=== PATIENT | female | born 1995 | race Caucasian/White ===

== ENCOUNTER 2020-05-31 10:21 | Emergency (ER) | payer OTHER, SELFPAY ==
[2020-05-31 10:48] VITALS: BP 118/81; PULSE 77; RESP 15; TEMP 36.6; O2SAT 98; BMI 22.1
--- NOTE | 2020-05-31 10:53 | US_ITS ---
EXAMINATION: ULTRASOUND APPENDIX CLINICAL INFORMATION: Right lower quadrant pain COMPARISON: None TECHNIQUE: Sonographic evaluation of the right lower quadrant with graded compression. FINDINGS: The appendix is identified measuring up to 0.6 cm. No wall thickening or adjacent inflammation. No free fluid. There is an appendicolith noted at the base of the appendix. US/US appendix IMPRESSION: Appendicolith at the base of the appendix with otherwise normal appearance of the appendix.
--- NOTE | 2020-05-31 10:53 | US_ITS ---
EXAMINATION: ULTRASOUND OF THE PELVIS CLINICAL INFORMATION: Pelvic/right lower quadrant pain.. COMPARISON: None. TECHNIQUE: Transabdominal and transvaginal pelvic ultrasound. Doppler evaluation with spectral analysis was performed. A transvaginal study was performed in addition to the transabdominal study which did not yield an adequate examination of the uterus and ovaries due to superimposed distended gas-filled loops of bowel. FINDINGS: The uterus is normal in size and appearance, measuring 8.1 x 2.8 x 4.8 cm longitudinally, anteroposteriorly and transversely. The endometrial stripe thickness is normal, measuring 0.4 cm in thickness. No focal myometrial mass is seen. The ovaries bilaterally are visualized and appear normal, with the right ovary measuring 2.8 x 1.9 x 2.8 cm and the left ovary measuring 2.7 x 1.8 x 1.6 cm. There are normal arterial and venous spectral waveforms bilaterally. No adnexal mass or free fluid collection seen. US/US transvaginal IMPRESSION: Normal pelvic ultrasound. No evidence of active ovarian torsion at this time..
--- NOTE | 2020-05-31 10:53 | US_ITS ---
EXAMINATION: ULTRASOUND OF THE PELVIS CLINICAL INFORMATION: Pelvic/right lower quadrant pain.. COMPARISON: None. TECHNIQUE: Transabdominal and transvaginal pelvic ultrasound. Doppler evaluation with spectral analysis was performed. A transvaginal study was performed in addition to the transabdominal study which did not yield an adequate examination of the uterus and ovaries due to superimposed distended gas-filled loops of bowel. FINDINGS: The uterus is normal in size and appearance, measuring 8.1 x 2.8 x 4.8 cm longitudinally, anteroposteriorly and transversely. The endometrial stripe thickness is normal, measuring 0.4 cm in thickness. No focal myometrial mass is seen. The ovaries bilaterally are visualized and appear normal, with the right ovary measuring 2.8 x 1.9 x 2.8 cm and the left ovary measuring 2.7 x 1.8 x 1.6 cm. There are normal arterial and venous spectral waveforms bilaterally. No adnexal mass or free fluid collection seen. US/US pelvic ovarian doppler IMPRESSION: Normal pelvic ultrasound. No evidence of active ovarian torsion at this time..
[2020-05-31] MEDS: 0.9 % Sodium Chloride 1,000 ML 1000 ML IV (11:18)
[2020-05-31 11:44] LABS: MANUAL DIFF FLAG NO
--- NOTE | 2020-05-31 11:53 | US_ITS ---
EXAMINATION: ULTRASOUND OF THE PELVIS CLINICAL INFORMATION: Pelvic/right lower quadrant pain.. COMPARISON: None. TECHNIQUE: Transabdominal and transvaginal pelvic ultrasound. Doppler evaluation with spectral analysis was performed. A transvaginal study was performed in addition to the transabdominal study which did not yield an adequate examination of the uterus and ovaries due to superimposed distended gas-filled loops of bowel. FINDINGS: The uterus is normal in size and appearance, measuring 8.1 x 2.8 x 4.8 cm longitudinally, anteroposteriorly and transversely. The endometrial stripe thickness is normal, measuring 0.4 cm in thickness. No focal myometrial mass is seen. The ovaries bilaterally are visualized and appear normal, with the right ovary measuring 2.8 x 1.9 x 2.8 cm and the left ovary measuring 2.7 x 1.8 x 1.6 cm. There are normal arterial and venous spectral waveforms bilaterally. No adnexal mass or free fluid collection seen. US/US pelvic complete IMPRESSION: Normal pelvic ultrasound. No evidence of active ovarian torsion at this time..
[2020-05-31 11:57] LABS: Glucose Urine UA NEG (NEG); Leukocyte Esterase Urine 1+ (NEG); Nitrite Urine NEG (NEG); Specific Gravity - Urine 1.025 (1.005-1.025); Urine Blood TRACE (NEG); Urine Ketones NEG (NEG); Urine Protein NEG (NEG-TRACE)
[2020-05-31 12:00] LABS: Basophils Percent Auto 0.3 % (0-2); Eosinophils Absolute Auto 0.2 X10*3/uL (0.0-0.4); Eosinophils Percent Auto 1.2 % (0-4); Hematocrit 43.7 % (37-47); Hemoglobin 14.4 g/dl (12.0-16.0); Imm Gran Abs Auto 0.06 X10*3/uL (0.00-0.03); Imm Gran Pct Auto 0.5 % (0.0-0.4); Lymphocytes Absolute Auto 2.5 X10*3/uL (1.2-4.9); Mean Corpuscular Hemoglobin 29.7 pg (27.0-33.0); Mean Corpuscular Volume 90.1 fL (80-98); Mean Platelet Volume 10.4 fL (9.4-12.3); Monocytes Absolute Auto 0.9 X10*3/uL (0.1-1.2); Neutrophils Absolute Auto 9.1 X10*3/uL (2.0-8.3); Platelet Count 340 X10*3/uL (160-400); Red Blood Count 4.85 X10*6/uL (4.20-5.50); White Blood Count 12.7 X10*3/uL (4.8-10.8)
--- NOTE | 2020-05-31 12:03 | ED_ITS ---
HPI - Abdominal Pain General Chief Complaint: Abdominal Pain <Perico Aparicio NP - Last Filed: 05/31/20 14:39> Stated Complaint: ABD PAIN <Perico Aparicio NP - Last Filed: 05/31/20 14:39> Time Seen by Provider: 05/31/20 10:53 <Perico Aparicio NP - Last Filed: 05/31/20 14:39> Source: patient <Perico Aparicio NP - Last Filed: 05/31/20 14:39> Mode of arrival: ambulatory <Perico Aparicio NP - Last Filed: 05/31/20 14:39> Limitations: no limitations <Perico Aparicio NP - Last Filed: 05/31/20 14:39> History of Present Illness HPI narrative: This is a 24-year-old female with history of a A0 status post C- section 1 year ago otherwise no routine medications who reports that she is just completed her menstrual cycle now is having lower pelvic pain on the right side described as crampy and intermittent since last night. Denies any irregular vaginal bleeding, no vaginal discharge or rash. Denies any radiation of pain to the back. No nausea vomiting diarrhea. <Perico Aparicio NP - Last Filed: 05/31/20 14:39> MD elicited complaint: other (Pelvic pain) <Perico Aparicio NP - Last Filed: 05/31/20 14:39> Onset (ago): day(s) <Perico Aparicio NP - Last Filed: 05/31/20 14:39> Pain Consistency: intermittent <Perico Aparicio NP - Last Filed: 05/31/20 14:39> Location: suprapubic <Perico Aparicio NP - Last Filed: 05/31/20 14:39> Severity: mild <Perico Aparicio NP - Last Filed: 05/31/20 14:39> Quality: aching <Perico Aparicio NP - Last Filed: 05/31/20 14:39> Radiation: none <Perico Aparicio NP - Last Filed: 05/31/20 14:39> Migration to: no migration <Perico Aparicio NP - Last Filed: 05/31/20 14:39> Relieving factors: nothing <Perico Aparicio NP - Last Filed: 05/31/20 14:39> Treatments prior to arrival: NSAIDs (Took Motrin earlier which helped a lot.) <Perico Aparicio NP - Last Filed: 05/31/20 14:39> Related Data Allergies/Adverse Reactions: Allergies Allergy/AdvReac Type Severity Reaction Status Date / Time No Known Allergies Allergy Verified 05/31/20 10:53 [No Known Allergies*] <Perico Aparicio NP - Last Filed: 05/31/20 14:39> Review of Systems Review of Systems Constitutional: No Weight loss, No Fever, No Chills, No Night Sweats, No Fatigue, No Malaise ENT/Mouth: No Hearing loss, No Ear Pain, No Nasal Congestion, No Sinus Pain, No Hoarseness, No sore throat, No Rhinorrhea, No Swallowing Difficulty Eyes: No Eye Pain, No Swelling, No Redness, No Foreign Body, No Discharge, No Vision Changes Cardiovascular: No Chest Pain, No SOB, No Dyspnea on Exertion Respiratory: No Cough, No Sputum, No Wheezing, No Smoke Exposure, No Dyspnea Gastrointestinal: No Nausea, No Vomiting, No Diarrhea, No Constipation, No Hematochezia, No Melena Genitourinary: no irregular bleeding, No Dysuria, No Urinary Frequency, No Hematuria, No Urinary Incontinence, No Urgency, No Flank Pain, No Urinary Flow Changes, No Hesitancy Musculoskeletal: No joint pain, No Myalgias, No Joint Swelling Skin: No Skin Lesions, No rash Neuro: No Weakness, No Numbness, No Headache Psych: No Social Issues Heme/Lymph: No Bruising, No Bleeding,No Lymphadenopathy Endocrine: No Polyuria, No Polydipsia, No Temperature Intolerance <Perico Aparicio NP - Last Filed: 05/31/20 14:39> Yes all other systems are reviewed and are negative <Perico Aparicio NP - Last Filed: 05/31/20 14:39> Physical Exam Vital Signs: Vital Signs: Last Vital Signs Temp 98.9 F 05/31/20 13:43 Pulse 68 05/31/20 13:43 Resp 16 05/31/20 13:43 BP 103/58 L 05/31/20 13:43 Pulse Ox 99 05/31/20 13:43 Body Mass Index 22.1 Reviewed <Perico Aparicio NP - Last Filed: 05/31/20 14:39> Vital Signs: Last Vital Signs Temp 98.9 F 05/31/20 13:43 Pulse 68 05/31/20 13:43 Resp 16 05/31/20 13:43 BP 103/58 L 05/31/20 13:43 Pulse Ox 99 05/31/20 13:43 Body Mass Index 22.1 <Ozzie Osborne MD - Last Filed: 06/06/20 15:47> Const: General: cooperative and healthy appearing; No acute distress or intoxicated appearing <[facility] - Last Filed: 05/31/20 14:39> Nutritional Appearance: average body habitus <[facility] - Last Filed: 05/31/20 14:39> Orientation/consciousness: patient oriented x3 <[facility] - Last Filed: 05/31/20 14:39> HENMT: Head: Yes normal to inspection <[facility] - Last Filed: 05/31/20 14:39> Ears: hearing grossly normal bilaterally <[facility] - Last Filed: 05/31/20 14:39> Eyes: General: appearance normal, both eyes and all related structures <[facility] - Last Filed: 05/31/20 14:39> Visual Rocha: normal visual rocha by confrontation <[facility] - Last Filed: 05/31/20 14:39> Neck: Neck: Yes normal visual inspection <[facility] - Last Filed: 05/31/20 14:39> Thyroid: Thyroid normal <[facility] - Last Filed: 05/31/20 14:39> Chest: Chest palpation & inspection: normal inspection of the chest <[facility] - Last Filed: 05/31/20 14:39> Resp: Effort & Inspection: normal respiratory effort <[facility] - Last Filed: 05/31/20 14:39> Cardio: Jugular venous distension: no JVD <[facility] - Last Filed: 05/31/20 14:39> GI: Inspection: Yes normal to inspection <[facility] - Last Filed: 05/31/20 14:39> Palpation (GI): Soft to palpation, not firm, nontender, no guarding, no splenomegaly, no hernias, no masses and No Ascites present <[facility] Markus - Last Filed: 05/31/20 14:39> Percussion: Yes normal to percussion <[facility] - Last Filed: 05/31/20 14:39> Auscultation: normal bowel sounds <[facility] Last Filed: 05/31/20 14:39> : Other: Fannie tech present for field marketing associate Swabs obtained <[facility] - Last Filed: 05/31/20 14:39> General: Yes no CVA tenderness <[facility] - Last Filed: 05/31/20 14:39> External Female Exam: normal external appearance <[facility] - Last Filed: 05/31/20 14:39> Speculum Exam - Vagina: normal appearance of the vagina, normal palpation and normal vaginal discharge (Very slight clear to mucousy) <[facility] Last Filed: 05/31/20 14:39> Bimanual exam- vagina & uterus: normal palpation <[facility] Last Filed: 05/31/20 14:39> Back/Spine/Pelvis: Back: no CVA tenderness <[facility] Last Filed: 05/31/20 14:39> Skin: General skin exam: no rashes or lesions noted <[facility] Last Filed: 05/31/20 14:39> Neuro: General: patient oriented x3 <[facility] - Last Filed: 05/31/20 14:39> Extrem: General: Yes normal to inspection <[facility] Last Filed: 05/31/20 14:39> Course Course Course Narrative: Resting comfortably in no acute distress. Ultrasound of the pelvis with Doppler show no acute findings. Appendix ultrasound within normal limits. AP atypical for appendicitis more consistent with gynecological i.e. dysmenorrhea t ype pain. Abdominal exam reassuring. Patient overall nontoxic. Hemodynamically stable. BV/CT NG per patient's request exam overall defer treatment she says she has low concerns but ?just want to be sure?. Will discharge home with clear precaution return follow-up instructions. Stable for discharge. <Perico Aparicio NP - Last Filed: 05/31/20 14:39> I have reviewed the chart <Ozzie Osborne MD - Last Filed: 06/06/20 15:47> MDM - Abdominal Pain Differential Diagnosis Differential diagnosis: Likely abdominal pain, acute appendicitis and ovarian cyst; Unlikely aortic dissection, bowel perforation, calculus of kidney, constipation, diverticulitis, endometriosis, gastroenteritis, gastritis, mesenteric ischemia, peptic ulcer disease, renal colic and small bowel obstruction <Perico Aparicio NP - Last Filed: 05/31/20 14:39> Differential diagnosis narrative:: Dysmenorrhea <Perico Aparicio NP - Last Filed: 05/31/20 14:39> Medical Records Attestation: I reviewed the patient's medical records. <Perico Aparicio NP - Last Filed: 05/31/20 14:39> Lab Data Attestation: I reviewed the patient's lab results. <Perico Aparicio NP - Last Filed: 05/31/20 14:39> Result diagrams: : 05/31/20 11:12 05/31/20 11:12 <Perico Aparicio NP - Last Filed: 05/31/20 14:39> Labs: Lab Results 05/31/20 05/31/20 05/31/20 Range/Units 11:12 11:12 11:12 WBC 12.7 H (4.8-10.8) X10*3/uL RBC 4.85 (4.20-5.50) X10*6/uL Hgb 14.4 (12.0-16.0) g/dl Hct 43.7 (37-47) % MCV 90.1 (80-98) fL MCH 29.7 (27.0-33.0) pg MCHC 33.0 (31.0-35.0) g/dl RDW 12.0 (11.0-16.0) % Plt Count 340 (160-400) X10*3/uL MPV 10.4 (9.4-12.3) fL Immature Gran % (Auto) 0.5 H (0.0-0.4) % Neut % (Auto) 71.0 (45-73) % Lymph % (Auto) 20.0 (20-40) % [place] % (Auto) 7.0 (2-11) % Eos % (Auto) 1.2 (0-4) % Baso % (Auto) 0.3 (0-2) % Lymph # (Auto) 2.5 (1.2-4.9) X10*3/uL [place] # (Auto) 0.9 (0.1-1.2) X10*3/uL Eos # (Auto) 0.2 (0.0-0.4) X10*3/uL Baso # (Auto) 0.0 (0.0-0.2) X10*3/uL Abs Immat Gran (auto) 0.06 H (0.00-0.03) X10*3/uL Absolute Neuts (auto) 9.1 H (2.0-8.3) X10*3/uL Absolute Nucleated RBC 0.000 (0.0-0.012) X10*3/uL Nucleated RBC % (auto) 0.0 (0.0-0.2) /100WBC Sodium 138 (135-145) mmol/L Potassium 4.1 (3.3-5.1) mmol/l Chloride 103 (96-108) mmol/L Carbon Dioxide 28 (22-29) mmol/L Anion Gap 11 L (12-20) BUN 17 H (9-16) mg/dL Creatinine 0.74 (0.5-1.4) mg/dL Estim Creat Clear Calc 98.6 Estimated GFR > 60 Random Glucose 70 (60-115) mg/dL Calcium 9.1 (8.4-10.2) mg/dL Total Bilirubin 1.5 H (0.0-1.0) mg/dL AST 12 (5-31) U/L ALT 12 (0-31) U/L Alkaline Phosphatase 102 (39-117) U/L Total Protein 7.8 (6.5-8.0) g/dL Albumin 4.7 (3.5-5.0) g/dL Urine Color YELLOW Urine Appearance HAZY Urine pH 6.0 (5.0-8.0) Ur Specific [place] 1.025 (1.005-1.025) Urine Protein NEG (NEG-TRACE) MG/DL Urine Glucose (UA) NEG (NEG) MG/DL Urine Ketones NEG (NEG) MG/DL Urine Blood TRACE (NEG) Urine Nitrite NEG (NEG) Ur Leukocyte Esterase 1+ H (NEG) Urine RBC 0-2 (0) /HPF Urine WBC 1-4 (0-4) /HPF Ur Squamous Epith Cells 2+ /LPF Urine Bacteria TRACE /LPF Urine Test NEGATIVE (NEGATIVE) Franc[place]sca species DNA (Negative) Chlam trachomat DNA PCR (Not Detect.) Gardnerella DNA Probe (Negative) N.gonorrhoeae DNA (PCR) (Not Detect.) Trichomonas DNA Probe (Negative) 05/31/20 05/31/20 Range/Units 14:19 14:19 WBC (4.8-10.8) X10*3/uL RBC (4.20-5.50) X10*6/uL Hgb (12.0-16.0) g/dl Hct (37-47) % MCV (80-98) fL MCH (27.0-33.0) pg MCHC (31.0-35.0) g/dl RDW (11.0-16.0) % Plt Count (160-400) X10*3/uL MPV (9.4-12.3) fL Immature Gran % (Auto) (0.0-0.4) % Neut % (Auto) (45-73) % Lymph % (Auto) (20-40) % [place]anan % (Auto) (2-11) % Eos % (Auto) (0-4) % Baso % (Auto) (0-2) % Lymph # (Auto) (1.2-4.9) X10*3/uL [place] # (Auto) (0.1-1.2) X10*3/uL Eos # (Auto) (0.0-0.4) X10*3/uL Baso # (Auto) (0.0-0.2) X10*3/uL Abs Immat Gran (auto) (0.00-0.03) X10*3/uL Absolute Neuts (auto) (2.0-8.3) X10*3/uL Absolute Nucleated RBC (0.0-0.012) X10*3/uL Nucleated RBC % (auto) (0.0-0.2) /100WBC Sodium (135-145) mmol/L Potassium (3.3-5.1) mmol/l Chloride (96-108) mmol/L Carbon Dioxide (22-29) mmol/L Anion Gap (12-20) BUN (9-16) mg/dL Creatinine (0.5-1.4) mg/dL Estim Creat Clear Calc Estimated GFR Random Glucose (60-115) mg/dL Calcium (8.4-10.2) mg/dL Total Bilirubin (0.0-1.0) mg/dL AST (5-31) U/L ALT (0-31) U/L Alkaline Phosphatase (39-117) U/L Total Protein (6.5-8.0) g/dL Albumin (3.5-5.0) g/dL Urine Color Urine Appearance Urine pH (5.0-8.0) Ur Specific [place] (1.005-1.025) Urine Protein (NEG-TRACE) MG/DL Urine Glucose (UA) (NEG) MG/DL Urine Ketones (NEG) MG/DL Urine Blood (NEG) Urine Nitrite (NEG) Ur Leukocyte Esterase (NEG) Urine RBC (0) /HPF Urine WBC (0-4) /HPF Ur Squamous Epith Cells /LPF Urine Bacteria /LPF Urine Test (NEGATIVE) [place]sc[place] species DNA Negative (Negative) Chlam trachomat DNA PCR NOT DETECTED (Not Detect.) Gardnerella DNA Probe Positive A (Negative) N.gonorrhoeae DNA (PCR) NOT DETECTED (Not Detect.) Trichomonas DNA Probe Negative (Negative) <Perico Aparicio NP - Last Filed: 05/31/20 14:39> Lab Results 05/31/20 05/31/20 05/31/20 Range/Units 11:12 11:12 11:12 WBC 12.7 H (4.8-10.8) X10*3/uL RBC 4.85 (4.20-5.50) X10*6/uL Hgb 14.4 (12.0-16.0) g/dl Hct 43.7 (37-47) % MCV 90.1 (80-98) fL MCH 29.7 (27.0-33.0) pg MCHC 33.0 (31.0-35.0) g/dl RDW 12.0 (11.0-16.0) % Plt Count 340 (160-400) X10*3/uL MPV 10.4 (9.4-12.3) fL Immature Gran % (Auto) 0.5 H (0.0-0.4) % Neut % (Auto) 71.0 (45-73) % Lymph % (Auto) 20.0 (20-40) % [place]anan % (Auto) 7.0 (2-11) % Eos % (Auto) 1.2 (0-4) % Baso % (Auto) 0.3 (0-2) % Lymph # (Auto) 2.5 (1.2-4.9) X10*3/uL [place] # (Auto) 0.9 (0.1-1.2) X10*3/uL Eos # (Auto) 0.2 (0.0-0.4) X10*3/uL Baso # (Auto) 0.0 (0.0-0.2) X10*3/uL Abs Immat Gran (auto) 0.06 H (0.00-0.03) X10*3/uL Absolute Neuts (auto) 9.1 H (2.0-8.3) X10*3/uL Absolute Nucleated RBC 0.000 (0.0-0.012) X10*3/uL Nucleated RBC % (auto) 0.0 (0.0-0.2) /100WBC Sodium 138 (135-145) mmol/L Potassium 4.1 (3.3-5.1) mmol/l Chloride 103 (96-108) mmol/L Carbon Dioxide 28 (22-29) mmol/L Anion Gap 11 L (12-20) BUN 17 H (9-16) mg/dL Creatinine 0.74 (0.5-1.4) mg/dL Estim Creat Clear Calc 98.6 Estimated GFR > 60 Random Glucose 70 (60-115) mg/dL Calcium 9.1 (8.4-10.2) mg/dL Total Bilirubin 1.5 H (0.0-1.0) mg/dL AST 12 (5-31) U/L ALT 12 (0-31) U/L Alkaline Phosphatase 102 (39-117) U/L Total Protein 7.8 (6.5-8.0) g/dL Albumin 4.7 (3.5-5.0) g/dL Urine Color YELLOW Urine Appearance HAZY Urine pH 6.0 (5.0-8.0) Ur Specific [place] 1.025 (1.005-1.025) Urine Protein NEG (NEG-TRACE) MG/DL Urine Glucose (UA) NEG (NEG) MG/DL Urine Ketones NEG (NEG) MG/DL Urine Blood TRACE (NEG) Urine Nitrite NEG (NEG) Ur Leukocyte Esterase 1+ H (NEG) Urine RBC 0-2 (0) /HPF Urine WBC 1-4 (0-4) /HPF Ur Squamous Epith Cells 2+ /LPF Urine Bacteria TRACE /LPF Urine Test NEGATIVE (NEGATIVE) [place] species DNA (Negative) Chlam trachomat DNA PCR (Not Detect.) Gardnerella DNA Probe (Negative) N.gonorrhoeae DNA (PCR) (Not Detect.) Trichomonas DNA Probe (Negative) 05/31/20 05/31/20 Range/Units 14:19 14:19 WBC (4.8-10.8) X10*3/uL RBC (4.20-5.50) X10*6/uL Hgb (12.0-16.0) g/dl Hct (37-47) % MCV (80-98) fL MCH (27.0-33.0) pg MCHC (31.0-35.0) g/dl RDW (11.0-16.0) % Plt Count (160-400) X10*3/uL MPV (9.4-12.3) fL Immature Gran % (Auto) (0.0-0.4) % Neut % (Auto) (45-73) % Lymph % (Auto) (20-40) % [place] % (Auto) (2-11) % Eos % (Auto) (0-4) % Baso % (Auto) (0-2) % Lymph # (Auto) (1.2-4.9) X10*3/uL [place] # (Auto) (0.1-1.2) X10*3/uL Eos # (Auto) (0.0-0.4) X10*3/uL Baso # (Auto) (0.0-0.2) X10*3/uL Abs Immat Gran (auto) (0.00-0.03) X10*3/uL Absolute Neuts (auto) (2.0-8.3) X10*3/uL Absolute Nucleated RBC (0.0-0.012) X10*3/uL Nucleated RBC % (auto) (0.0-0.2) /100WBC Sodium (135-145) mmol/L Potassium (3.3-5.1) mmol/l Chloride (96-108) mmol/L Carbon Dioxide (22-29) mmol/L Anion Gap (12-20) BUN (9-16) mg/dL Creatinine (0.5-1.4) mg/dL Estim Creat Clear Calc Estimated GFR Random Glucose (60-115) mg/dL Calcium (8.4-10.2) mg/dL Total Bilirubin (0.0-1.0) mg/dL AST (5-31) U/L ALT (0-31) U/L Alkaline Phosphatase (39-117) U/L Total Protein (6.5-8.0) g/dL Albumin (3.5-5.0) g/dL Urine Color Urine Appearance Urine pH (5.0-8.0) Ur Specific [place] (1.005-1.025) Urine Protein (NEG-TRACE) MG/DL Urine Glucose (UA) (NEG) MG/DL Urine Ketones (NEG) MG/DL Urine Blood (NEG) Urine Nitrite (NEG) Ur Leukocyte Esterase (NEG) Urine RBC (0) /HPF Urine WBC (0-4) /HPF Ur Squamous Epith Cells /LPF Urine Bacteria /LPF Urine Test (NEGATIVE) Franc[place]sca species DNA Negative (Negative) Chlam trachomat DNA PCR NOT DETECTED (Not Detect.) Gardnerella DNA Probe Positive A (Negative) N.gonorrhoeae DNA (PCR) NOT DETECTED (Not Detect.) Trichomonas DNA Probe Negative (Negative) <Ozzie Osborne MD - Last Filed: 06/06/20 15:47> Imaging Data Appendix ultrasound: Radiologist's impression: [address] [address] Ultrasound Report Signed Patient: Janey FoleyMR#: [id number] : 1995Acct:[id number] Age/Sex: 24 / FADM Date: 05/31/20 Loc: HO.ED Attending Dr: Ordering Physician: Perico Aparicio NP Date of Service: 05/31/20 Procedure(s): US appendix Accession Number(s): [id number] cc: Perico Aparicio CRITICAL POWER INSTALL TECHNICIAN~ EXAMINATION: ULTRASOUND APPENDIX CLINICAL INFORMATION: Right lower quadrant pain COMPARISON: None TECHNIQUE: Sonographic evaluation of the right lower quadrant with graded compression. FINDINGS: The appendix is identified measuring up to 0.6 cm. No wall thickening or adjacent inflammation. No free fluid. There is an appendicolith noted at the base of the appendix. US/US appendix IMPRESSION: Appendicolith at the base of the appendix with otherwise normal appearance of the appendix. Dictated By:BEKAH CLOUD MD Signed By:<Electronically signed by BEKAH CLOUD MD in OV>05/31/20 1223 DD/ 1053 TD/TT: Director Of Media: LUCAS <Perico Aparicio NP - Last Filed: 05/31/20 14:39> Pelvic ultrasound : Radiologist's impression: [place] [address] Ultrasound Report Signed Patient: Janey FoleyMR#: [id number] : 1995Acct:[id number] Age/Sex: 24 FADM Date: 05/31/20 Loc: .ED Attending Dr: Ordering Physician: Perico Aparicio NP Date of Service: 05/31/20 Procedure(s): US pelvic complete Accession Number(s): [id number] cc: Perico Aparicio NP~ EXAMINATION: ULTRASOUND OF THE PELVIS CLINICAL INFORMATION: Pelvic/right lower quadrant pain.. COMPARISON: None. TECHNIQUE: Transabdominal and transvaginal pelvic ultrasound. Doppler evaluation with spectral analysis was performed. A transvaginal study was performed in addition to the transabdominal study which did not yield an adequate examination of the uterus and ovaries due to superimposed distended gas-filled loops of bowel. FINDINGS: The uterus is normal in size and appearance, measuring 8.1 x 2.8 x 4.8 cm longitudinally, anteroposteriorly and transversely. The endometrial stripe thickness is normal, measuring 0.4 cm in thickness. No focal myometrial mass is seen. The ovaries bilaterally are visualized and appear normal, with the right ovary measuring 2.8 x 1.9 x 2.8 cm and the left ovary measuring 2.7 x 1.8 x 1.6 cm. There are normal arterial and venous spectral waveforms bilaterally. No adnexal mass or free fluid collection seen. US/US pelvic complete IMPRESSION: Normal pelvic ultrasound. No evidence of active ovarian torsion at this time.. Dictated By:BEKAH CLOUD MD Signed By:<Electronically signed by BEKAH CLOUD MD in OV>05/31/20 1227 DD/ 1153 TD/TT: Director Of Media: LUCAS <Perico Aparicio NP - Last Filed: 05/31/20 14:39> Discharge Plan Discharge Clinical Impression: Abdominal pain <Perico Aparicio NP - Last Filed: 05/31/20 14:39> Patient Disposition: Home, Self-Care <Perico Aparicio NP - Last Filed: 05/31/20 14:39> Instructions: Acute Abdominal Pain (ED) <Perico Aparicio NP - Last Filed: 05/31/20 14:39> Additional Instructions: Return if any concerns or worsening symptoms Your blood work as well as the ultrasound appeared within normal limits Per your request we have done a pelvic exam and tested for chlamydia/gonorrhea and bacterial vaginosis although you say have no concern for this and defer treatment we will call you with results only if positive Return if any concerns or worsening symptoms again follow up with her primary care doctor Thank you <Perico Aparicio NP - Last Filed: 05/31/20 14:39> Referrals: Physician,None [Primary Care Provider] - 2 days (Your primary care doctor) <Perico Aparicio NP - Last Filed: 05/31/20 14:39> Interventions: ED Discharge Assessment Last Done: 05/31/20 14:29 <Perico Aparicio NP - Last Filed: 05/31/20 14:39> Discharge Date/Time: 05/31/20 14:29 <Perico Aparicio NP - Last Filed: 05/31/20 14:39> PMFSH Past Medical History Surgical History: Surgical History (Updated 05/31/20 @ 10:51 by Alejandro Renae) H/O: <Perico Aparicio, CRITICAL POWER INSTALL TECHNICIAN - Last Filed: 05/31/20 14:39> Social History Social History: Social History Advance Directives: No Advance Directives Information Provided: Yes <Perico Aparicio NP - Last Filed: 05/31/20 14:39>
[2020-05-31 12:06] LABS: Appearance Urine HAZY; Color Urine YELLOW
[2020-05-31 12:27] LABS: Alanine Aminotransferase 12 U/L (0-31); Albumin Level 4.7 g/dL (3.5-5.0); Alkaline Phosphatase 102 U/L (39-117); Anion Gap 11 (12-20); Aspartate Amino Transferase 12 U/L (5-31); Bilirubin Total 1.5 mg/dL (0.0-1.0); Blood Urea Nitrogen 17 mg/dL (9-16); Calcium 9.1 mg/dL (8.4-10.2); Carbon Dioxide 28 mmol/L (22-29); Chloride 103 mmol/L (96-108); Creatinine Clr Calc Pharmacy 98.6; Estimated Glomerular Filt Rate > 60; Glucose Random 70 mg/dL (60-115); Potassium 4.1 mmol/l (3.3-5.1); Sodium 138 mmol/L (135-145); Total Protein 7.8 g/dL (6.5-8.0); UPreg QC Valid YES; Urine Pregnancy NEGATIVE (NEGATIVE)
[2020-05-31 12:35] LABS: Bacteria Urine TRACE /LPF; RBC Urine 0-2 /HPF (0); Squamous Epithelial Cell Urine 2+ /LPF
[2020-05-31 13:43] VITALS: BP 103/58; PULSE 68; RESP 16; TEMP 37.2; O2SAT 99
[2020-06-01 09:51] LABS: BV Int Neg Control Negative (Negative); BV Int Pos Control Positive (Positive)
[2020-06-01 10:53] LABS: CT PCR NOT DETECTED (Not Detect.); NG PCR NOT DETECTED (Not Detect.)
== END 2020-05-31 14:29 | disposition home or self-care (01) ==
PROVIDERS: Nurse Practitioner Primary Care; Emergency Provider Emergency Medicine
DX: R10.31 Right lower quadrant pain (principal); R10.2 Pelvic and perineal pain
CPT/HCPCS: 36415; 76705; 76830; 76856; 80053; 81001; 81025; 85025; 87086; 87480; 87491; 87510; 87591; 87660; 93975; 96360; 99284

== ENCOUNTER 2021-03-20 06:31 | Emergency (ER) | payer OTHER, SELFPAY ==
[2021-03-20 06:54] VITALS: BP 126/74; PULSE 114; RESP 18; TEMP 35.9; O2SAT 98; BMI 21.1
--- NOTE | 2021-03-20 07:12 | ED.NAVMDI ---
HPI - Nausea/Vomiting/Diarrhea General Chief complaint: Nausea/Vomiting/Diarrhea Stated complaint: flu symptoms Time Seen by Provider: 03/20/21 06:34 Source: patient Mode of arrival: ambulatory Limitations: no limitations History of Present Illness MD elicited complaint: nausea, vomiting and other (body aches) Onset (ago): day(s) (started one day) Description of vomiting: food contents Associated nausea: Yes Associated abdominal pain: No Pain consistency: intermittent Severity: mild Quality: other (body aches) Exacerbating factors: none Relieving factors: none Context: other (pateint is fully vaccinated) Associated symptoms: myalgias, loss of appetite, malaise and nausea/vomiting Related Data Previous Rx's Medication Instructions Recorded ondansetron 4 mg disintegrating 4 mg PO Q8H PRN #20 tab 03/20/21 tablet Allergies Allergy/AdvReac Type Severity Reaction Status Date / Time No Known Allergies Allergy Verified 03/20/21 06:52 [No Known Allergies*] Review of Systems Review of Systems: Constitutional : No Fever, pos Chills, pos Fatigue, pos Malaise ENT/Mouth : No sore throat, No Rhinorrhea Eyes: No Eye Pain, No Swelling, No Redness Cardiovascular : No Chest Pain, No SOB, No Dyspnea on Exertion, No Orthopnea, No Edema, No Palpitations Respiratory : No Cough, No Sputum, No Wheezing Gastrointestinal : pos Nausea, pos Vomiting, No Diarrhea, No abdominal Pain Genitourinary : No Dysuria, No Urinary Frequency Musculoskeletal : No joint pain, pos Myalgias Neuro : No Weakness, No Numbness, No Dizziness, No Headache Gastrointestinal: Gastrointestinal: Reports nausea PMFSH Past Medical History Attestation statement: The following information was validated with the patient. Medical History (Updated 03/20/21 @ 07:47 by Latosha Maxwell DO) No active medical problems Surgical History H/O: Social History Social History (Updated 03/20/21 @ 07:43 by Latosha Maxwell DO) Patient Tobacco Use Status: Never used Tobacco Advance Directives: No Advance Directives Information Provided: No Physical Exam Vital Signs: Vital Signs: Last Vital Signs Temp 96.7 F L 03/20/21 06:54 Pulse 114 H 09/06/21 06:54 Resp 18 03/20/21 06:54 BP 126/74 03/20/21 06:54 Pulse Ox 98 03/20/21 06:54 Body Mass Index 21.1 Appearance: Alert. Oriented X3. No acute distress. Looks well Eyes: Pupils equal, round and reactive to light. ENT: Pharynx normal. Neck: Normal inspection. Neck supple. CVS: Normal heart rate and rhythm. Pulses normal. Respiratory: No respiratory distress. Breath sounds normal. Abdomen: Soft and non-tender. Skin: Skin warm and dry. Normal skin color. Normal skin turgor. Extremities: No lower extremity edema. No calf ttp Neuro: Oriented X 3. No motor deficit. No sensory deficit. MDM - Nausea/Vomiting/Diarrhea MDM Narrative Medical decision making narrative: healthy 25 yo female vaccinated comes in with c/o malaise nv body aches - overall not toxic appearing, COVID swab, UA/UPT, supportive medications Lab Data Labs: Lab Results 03/20/21 Range/Units 06:43 COVID-19 ([facility]) Negative (Negative) COVID-19 Clin Com See Note Discharge Plan Discharge Clinical Impression: Acute viral syndrome Vomiting Qualifiers: Vomiting type: unspecified Vomiting Intractability: non-intractable Nausea presence: with nausea Qualified Code(s): R11.2 - Nausea with vomiting, unspecified Patient Disposition: Home, Self-Care Instructions: Acute Nausea and Vomiting (ED), Viral Syndrome (ED) Additional Instructions: return to ED for any worsening symptoms or concerns REPEAT COVID TEST ON SATURDAY QUARANTINE YOURSELF WEAR A MASK Prescriptions: New ondansetron 4 mg tablet,disintegrating 4 mg PO Q8H PRN (Reason: nausea and vomiting) Qty: 20 RF: 0 Stand Alone Forms: Work/School Release
[2021-03-20 07:29] LABS: COVID-19 Test Negative (Negative); IDNOW Serial# 9DD0AD1C
[2021-03-20] MEDS: Acetaminophen 325 MG TABLET 650 MG PO (08:09)
[2021-03-20] MEDS: Ondansetron ODT 4 MG TAB.RAPDIS TRANSLINGU (08:09)
--- NOTE | 2021-03-20 08:11 | PC.NURSE ---
pt seen by Dr Maxwell. A/O x 3. Covid (-). Medicated as orderd; awaiting effect and disposition. pending UA
[2021-03-20 08:17] LABS: Glucose Urine UA NEG (NEG); Leukocyte Esterase Urine TRACE (NEG); Nitrite Urine NEG (NEG); PH 5.5 (5.0-8.0); Specific Gravity - Urine 1.025 (1.005-1.025); UACC Culture Trigger YES; Urine Blood NEG (NEG); Urine Ketones 5 MG/DL (NEG); Urine Protein TRACE MG/DL (NEG-TRACE)
[2021-03-20 08:21] LABS: Appearance Urine HAZY; Color Urine YELLOW; UPreg QC Valid YES; Urine Pregnancy NEGATIVE (NEGATIVE)
[2021-03-20 08:29] LABS: Amorphous Sediment Urine 1+ /LPF; Bacteria Urine TRACE /LPF; RBC Urine 0-2 /HPF (0); Squamous Epithelial Cell Urine 2+ /LPF
== END 2021-03-20 09:30 | disposition home or self-care (01) ==
PROVIDERS: Emergency Provider Emergency Medicine
DX: B34.9 Viral infection, unspecified (principal); Z20.822 Contact with and (suspected) exposure to COVID-19; R11.2 Nausea with vomiting, unspecified; R53.81 Other malaise
CPT/HCPCS: 36415; 81001; 81025; 87086; 87635; 99283

== ENCOUNTER 2021-06-06 17:46 | Emergency (ER) | payer SELFPAY | END 2021-06-06 19:47 | disposition left against medical advice (07) | PROVIDERS: Emergency Provider Emergency Medicine | DX: R30.0 Dysuria (principal) ==

== ENCOUNTER 2023-04-17 21:45 | Emergency (ER) | payer SELFPAY ==
[2023-04-17 22:30] VITALS: BP 109/70; PULSE 65; RESP 16; TEMP 36.6; O2SAT 98; BMI 24.5
[2023-04-17 23:00] LABS: Hematocrit 42.4 % (37.0-47.0); Hemoglobin 14.2 g/dl (12.0-16.0); Mean Corpuscular HGB Conc 33.5 g/dl (31.0-35.0); Mean Corpuscular Hemoglobin 31.3 pg (27.0-33.0); Mean Corpuscular Volume 93.4 fL (80.0-98.0); Mean Platelet Volume 11.9 fL (9.4-12.3); PLT CLUMP 1; Red Blood Count 4.54 X10*6/uL (4.20-5.50); Red Cell Distribution Width 12.1 % (11.0-16.0)
[2023-04-17 23:01] LABS: White Blood Count 10.2 X10*3/uL (4.8-10.8)
[2023-04-17 23:12] LABS: Anion Gap 12 (12-20); Blood Urea Nitrogen 9 mg/dL (9-16); Calcium 9.1 mg/dL (8.4-10.2); Carbon Dioxide 18 mmol/L (22-29); Chloride 108 mmol/L (96-108); Creatinine Clr Calc Pharmacy 103.1; Estimated Glomerular Filt Rate > 60; Glucose Random 99 mg/dL (60-115); Potassium 4.4 mmol/L (3.3-5.1); Sodium 134 mmol/L (135-145)
--- NOTE | 2023-04-18 00:25 | PC.NURSE ---
pt states she is feeling better and thinks she was having an anxiety attack. pt has steady gait, no s/s of difficulty breathing.
--- NOTE | 2023-04-18 01:11 | ECG_ITS ---
Test Reason : CP Blood Pressure : / mmHG Vent. Rate : 061 BPM Atrial Rate : 061 BPM P-R Int : 122 ms QRS Dur : 082 ms QT Int : 394 ms P-R-T Axes : 059 057 047 degrees QTc Int : 396 ms Normal sinus rhythm with sinus arrhythmia Normal ECG When compared with ECG of 27-JAN-2018 23:40, Non-specific change in ST segment in Anterior leads T wave amplitude has increased in Anterior leads Referred By: Colette Schmidt Electronically Signed By:IAIN FAGAN
--- NOTE | 2023-04-18 01:33 | ED_ITS ---
HPI - Anxiety General Chief Complaint: Anxiety Stated Complaint: Difficulty breathing, body shakes Time Seen by Provider: 04/18/23 00:32 History of Present Illness HPI narrative: The patient is a 27-year-old female presents today with having tingling sensation to feet difficulty breathing shaking has a history of anxiety in the past. She received her flu shot today. His symptom has completely resolved. Patient denies any diaphoresis. Denies any history of coronary issues. No history of irregular heartbeats. No sudden in the family. No recreational drug use. Does not think she is . Related Data Previous Rx's Medication Instructions Recorded ondansetron 4 mg disintegrating 4 mg PO Q8H PRN nausea and 03/20/21 tablet vomiting #20 tabs Allergies Allergy/AdvReac Type Severity Reaction Status Date / Time No Known Allergies Allergy Verified 04/17/23 22:30 [No Known Allergies*] Review of Systems 2 Review of Systems: Positive history of palpitation. Yes all other systems are reviewed and are negative PMFSH Past Medical History Medical History (Updated 04/18/23 @ 01:37 by Colette Schmidt MD) No active medical problems Surgical History H/O: Social History Social History (Updated 03/20/21 @ 07:43 by Lenora Maxwell DO) Patient Tobacco Use Status: Never used Tobacco Physical Exam 2 Vital Signs: Vital Signs: Last Vital Signs Temp 98 F 04/17/23 22:30 Pulse 65 04/17/23 22:30 Resp 16 04/17/23 22:30 BP 109/70 04/17/23 22:30 Pulse Ox 98 04/17/23 22:30 O2 Del Method Room Air 04/17/23 22:30 BMI result Body Mass Index 24.5 Appearance: Alert. Oriented X3. No acute distress. Eyes: Pupils equal, round and reactive to light. ENT: Pharynx normal. Neck: Normal inspection. Neck supple. No lymph nodes noted. No crepitus CVS: Normal heart rate and rhythm. Pulses normal. Normal S1 and S2 Respiratory: No respiratory distress. Breath sounds normal. No Wheezing. No rales Abdomen: Soft and nontender. No rigidity. No distention. good BS x4 Skin: Skin warm and dry. Normal skin color. Normal skin turgor. Extremities: No lower extremity edema. Neurovascular intact to all extremities. No Lacerations. No Rash Neuro: Oriented X 3. No motor deficit. No sensory deficit. Moving all extermities. No slurred speech Medical Decision Making Medical Decision Making [facility] Narrative: Well-appearing sugar was normal no evidence for hypoglycemia. My interpretation of patient's EKG showed a sinus rhythm heart rate is 60 PA QRS QTC within normal limits is no acute ST segment elevation. Patient's electrolytes were normal. Hemoglobin is normal there is no evidence for anemia. Symptom has completely resolved question anxiety will discharge patient home Differential Diagnosis Differential Diagnoses: The differential diagnosis associated with the presentation includes Anxiety, arrhythmia, anemia, shortness of breath, hypoglycemia Admission/Observation Consideration of admission/observation: Escalation of care including admission/observation considered Well-appearing symptoms completely resolved will discharge home Lab Data [facility] Lab Attestation statement: I reviewed the patient's lab results. 04/17/23 22:45 04/17/23 22:45 Labs: Lab Results 04/17/23 Range/Units 22:45 WBC 10.2 (4.8-10.8) X10*3/uL RBC 4.54 (4.20-5.50) X10*6/uL Hgb 14.2 (12.0-16.0) g/dl Hct 42.4 (37.0-47.0) % MCV 93.4 (80.0-98.0) fL MCH 31.3 (27.0-33.0) pg MCHC 33.5 (31.0-35.0) g/dl RDW 12.1 (11.0-16.0) % Plt Count TNP MPV 11.9 (9.4-12.3) fL Absolute Nucleated RBC 0.000 (0.0-0.012) X10*3/uL Nucleated RBC % (auto) 0.0 (0.0-0.2) /100WBC Sodium 134 L (135-145) mmol/L Potassium 4.4 (3.3-5.1) mmol/L Chloride 108 (96-108) mmol/L Carbon Dioxide 18 L (22-29) mmol/L Anion Gap 12 (12-20) BUN 9 (9-16) mg/dL Creatinine 0.72 (0.5-1.4) mg/dL Estim Creat Clear Calc 103.1 Estimated GFR > 60 Random Glucose 99 (60-115) mg/dL Calcium 9.1 (8.4-10.2) mg/dL Independent Interpretation I performed an independent interpretation of an: EKG (Sinus heart rate is 60 PA QRS QTC within normal limits is no acute ST segment elevation.) Discharge Plan Discharge Clinical Impression: Acute anxiety Patient Disposition: Home, Self-Care Instructions: Anxiety (ED) Prescriptions: No Action ondansetron 4 mg tablet,disintegrating 4 mg PO Q8H PRN (Reason: nausea and vomiting) Qty: 20 0RF Referrals: Physician,Unknown J [Primary Care Provider] - 04/22/23
== END 2023-04-18 02:04 | disposition home or self-care (01) ==
PROVIDERS: Emergency Provider Emergency Medicine Emergency Medical Services
DX: F41.9 Anxiety disorder, unspecified (principal); R20.2 Paresthesia of skin
CPT/HCPCS: 36415; 80048; 85027; 93005; 99282; 99283

== ENCOUNTER 2023-05-02 11:27 | Emergency (ER) | payer SELFPAY ==
[2023-05-02 11:52] VITALS: BP 118/66; PULSE 75; RESP 18; TEMP 36.2; O2SAT 99; BMI 24.4
--- NOTE | 2023-05-02 11:53 | ED.ALLEREA ---
HPI - Allergic Reaction General Chief complaint: Allergic Reaction Stated complaint: Medication reaction-sob Time Seen by Provider: 05/02/23 14:14 Source: patient Mode of arrival: ambulatory Limitations: no limitations History of Present Illness HPI narrative: Patient is a 27-year-old female with history of anxiety presenting to the emergency department with sensation of throat and chest tightness as well as cold sensation to throat and chest after taking hydroxyzine today which was prescribed to her yesterday. Patient reports she has been having frequent episodes of acute anxiety, several daily. She was seen at [facility] yesterday and prescribed 25 mg of hydroxyzine. Reports she was feeling acute anxiety today and then took 12.5 mg of hydroxyzine. States approximately 3-4 minutes after taking medication her symptoms began. States when symptoms began she immediately came to the emergency department as she [place]. She denies any difficulty managing her secretions. Denies any rashes. Denies any swelling of lips or tongue. She reports symptoms have spontaneously resolved after arriving to the emergency department. She was ordered Benadryl and famotidine in triage which she has declined. MD complaint: other (Throat and chest tightness) Onset (ago): hour(s) Exposure: medication Symptoms: other (Throughout and chest tightness) Severity: moderate Treatment prior to arrival: none Previous Allergic Reaction History: none Related Data Previous Rx's Medication Instructions Recorded ondansetron 4 mg disintegrating 4 mg PO Q8H PRN nausea and 03/20/21 tablet vomiting #20 tabs hydroxyzine HCl 25 mg tablet 25 mg PO TID PRN anxiety #7 tabs 05/01/23 Allergies Allergy/AdvReac Type Severity Reaction Status Date / Time No Known Allergies Allergy Verified 04/17/23 22:30 [No Known Allergies*] Review of Systems Review of Systems: As per HPI. Yes all other systems are reviewed and are negative Constitutional: Constitutional: Reports as per HPI [facility] Past Medical History Medical History (Updated 05/02/23 @ 14:58 by Katy Abdul NP) No active medical problems Surgical History H/O: Social History Social History (Updated 03/20/21 @ 07:43 by Lenora Maxwell DO) Patient Tobacco Use Status: Never used Tobacco Smoked in Last 30 Days: No Use of substances other than those prescribed or required for medical reasons: No Advance Directives: No Physical Exam ED Vital Signs: Vital Signs - 24 hr 05/02/23 11:52 Temperature 97.1 F Pulse Rate 75 Respiratory Rate 18 Blood Pressure 118/66 Pulse Oximetry 99 Oxygen Delivery Method Room Air BMI result Body Mass Index 24.4 Vital signs have been reviewed and appear to be correct. Blood pressure normal. Heart rate normal. Respiratory rate normal. Temperature normal. Oxygen saturation normal. Const General: cooperative, healthy appearing and no acute distress Orientation/consciousness: oriented to person, oriented to place, oriented to time and patient oriented x3 Limitations: no limitations HENMT Head: Yes normocephalic and Yes atraumatic Ears: external ears normal General nose exam: Normal external nose present Face and sinus: Yes face symmetric Mouth: Normal oral and palatal mucosa present, lip normal, tongue normal, oropharynx normal, moist mucous membranes, no audible dysphonia and no drooling Throat: Yes posterior oropharynx normal, Yes tonsils normal, Yes uvula midline and No uvular edema Eyes Pupils: Equal, round and reactive pupils present Neck Neck: Yes normal visual inspection and Yes supple Chest Chest palpation & inspection: normal inspection of the chest and normal palpation of entire chest wall Resp Effort & Inspection: normal respiratory effort and able to speak in complete sentences Auscultation: clear to auscultation bilaterally Cardio Rate: regular rate Rhythm: regular rhythm Heart sounds: S1 normal heart sound present and S2 normal heart sound present GI Palpation (GI): Soft to palpation and nontender Auscultation: normoactive bowel sounds General: Yes no CVA tenderness Back/Spine/Pelvis Back: no CVA tenderness Skin General skin exam: no rashes or lesions noted, elasticity normal and turgor normal Neuro General: oriented to person, oriented to place, oriented to time, patient oriented x3, moves all extremities, no focal motor deficits and CN's II-XI intact bilaterally Cranial nerves: Yes Equal, round and reactive pupils present Cognition (Neuro): normal cognition Extrem General: Yes full ROM, Yes no pedal edema and Yes no calf tenderness Psych Mental Status: mental status grossly normal Affect: normal affect Thought process: Normal thought process present Course Course Course Narrative: RME: 27yo F w/PMHx anxiety c/o suspected Medication Rxn to Hydroxyzine which she was Rx in our ED on 04/18/23. Admits took the med around 11:00AM today (took 1/2 pill), this being the 1st time shes taken it and felt cold sensation, chest tightness & throat closing sensation. denies rash Talking in complete sentences, no respiratory distress, uvula midline, no evidence of anaphylaxis P.o. Benadryl and Pepcid ordered Full HPI, ROS and PE to be performed by primary ED provider. Medical Decision Making Medical Decision Making [facility] Narrative: Patient is a 27-year-old female with history of anxiety presenting to the emergency department with sensation of throat and chest tightness as well as cold sensation to throat and chest after taking hydroxyzine today which was prescribed to her yesterday. On exam patient is awake, A+Ox3, VS WNL, afebrile, in no acute distress, normal neurological exam without focal deficits, physical exam findings as above. Given reported symptoms and physical exam findings, initial differential includes acute anxiety, adverse medication reaction. No evidence of anaphylaxis. Discussed with patient that physical exam findings are reassuring and that symptoms were likely related to acute anxiety. Given that symptoms have fully resolved spontaneously and patient has been observed in the emergency department for 3.5 hours feel patient is stable for discharge home at this time. Discussed with patient taking that she could try taking the hydroxyzine prior to onset of symptoms to reduce number of acute episodes of anxiety daily. Patient states that she does not currently have a therapist or psychiatrist but that she has been provided with resources for finding one. Strict return precautions discussed with patient at bedside. Patient verbalized understanding of and agreement plan. Differential Diagnosis Differential Diagnoses: The differential diagnosis associated with the presentation includes As per MDM. External Record Review External record reviewed: Inpatient record, Office record and Outpatient record Discharge Plan Discharge Clinical Impression: Acute anxiety Patient Disposition: Home, Self-Care Instructions: Anxiety (ED), Panic Disorder (ED) Additional Instructions: You were evaluated in the emergency department today for throat and chest tightness. Your physical exam did not show evidence of anaphylaxis. Your symptoms were likely related to acute anxiety. You should attempt to establish care with a therapist to assist in managing your symptoms. Return to the emergency department if you experience a new rash, swelling of your lips or tongue, abdominal pain, nausea or vomiting, difficulty breathing, chest pain, or any other concerning symptoms. Prescriptions: No Action ondansetron 4 mg tablet,disintegrating 4 mg PO Q8H PRN (Reason: nausea and vomiting) Qty: 20 0RF hydroxyzine HCl 25 mg tablet 25 mg PO TID PRN (Reason: anxiety) Qty: 7 0RF
--- NOTE | 2023-05-02 15:13 | PC.NURSE ---
pt refused allergic reaction medication. pt thinks her throat closing sensation and chest tightness was related to anxiety and symptoms have since subsided.
== END 2023-05-02 15:12 | disposition home or self-care (01) ==
PROVIDERS: Emergency Provider Emergency Medicine Emergency Medical Services
DX: F41.9 Anxiety disorder, unspecified (principal)
CPT/HCPCS: 99283; 99284

== ENCOUNTER 2023-05-04 03:41 | Emergency (ER) | payer SELFPAY ==
[2023-05-04 03:42] VITALS: BP 115/64; PULSE 55; RESP 18; TEMP 36.5; O2SAT 98; BMI 24.2
--- NOTE | 2023-05-04 03:46 | ECG_ITS ---
Test Reason : CHEST PAIN Blood Pressure : / mmHG Vent. Rate : 066 BPM Atrial Rate : 066 BPM P-R Int : 134 ms QRS Dur : 082 ms QT Int : 376 ms P-R-T Axes : 067 056 060 degrees QTc Int : 394 ms Normal sinus rhythm with sinus arrhythmia Normal ECG When compared with ECG of 18-APR-2023 01:15, No significant change was found Referred By: Generic ED Physician Electronically Signed By:GORAN DEL ROSARIO MD
[2023-05-04 04:16] LABS: Basophils Percent Auto 0.4 % (0-2); Eosinophils Absolute Auto 0.1 X10*3/uL (0.0-0.4); Hematocrit 39.9 % (37.0-47.0); Hemoglobin 13.8 g/dl (12.0-16.0); Imm Gran Abs Auto 0.02 X10*3/uL (0.00-0.03); Imm Gran Pct Auto 0.2 % (0.0-0.4); Lymphocytes Absolute Auto 4.5 X10*3/uL (1.2-4.9); Lymphocytes Percent Auto 42.5 % (20-40); MANUAL DIFF FLAG NO; Mean Corpuscular HGB Conc 34.6 g/dl (31.0-35.0); Mean Corpuscular Hemoglobin 30.5 pg (27.0-33.0); Mean Corpuscular Volume 88.3 fL (80.0-98.0); Mean Platelet Volume 10.4 fL (9.4-12.3); Monocytes Percent Auto 9.2 % (2-11); Neutrophils Absolute Auto 4.9 x10*3/uL (2.0-8.3); Neutrophils Percent Auto 46.7 % (45-73); Platelet Count 253 X10*3/uL (160-400); Red Blood Count 4.52 X10*6/uL (4.20-5.50); Red Cell Distribution Width 11.8 % (11.0-16.0); White Blood Count 10.5 X10*3/uL (4.8-10.8)
--- OUTSIDE RECORDS SUMMARY | 2023-05-04 04:18 | XMS_ITS | Continuity of Care Document ---
Author Name Unknown Organization [facility] ter Address [address] [place] [id number]- Care Team Providers Care Endoscopic Technician Name Role Phone Karolyn Stovall NP Primary Care Physicia n Encounter [facility] [place] Date(s): 05/01/23 - 05/01/[address] [address]- Encounter Diagnosis Panic attacks(Final) - 05/01/23 Chest pain(Final) - 05/01/23 Shortness of breath(Final) - 05/01/23 Discharge Disposition: A-D/C Home Attending Physician: Kristine Parnell MD Admitting Physician: Kristine Parnell MD Referring Physician: Not on Staff, Referring MD Allergies, Adverse Reactions, Alerts No Known Allergies Medications hydrOXYzine hydrochloride 25 mg oral tablet 1 tablet = 25 mg, By Mouth, 3 times a day, PRN for anxiety, # 40 tablet, 2 Refills, Maintenance, 05/01/23 22:10:00 EDT, Tablet, [id number], Partial fill upon patient request if the prescription is for a schedule II opioid drug., 163, cm, 05/01... Start Date: 05/01/23 Status: Ordered Results Radiology Reports * Exam Date Time Procedure Performing Provider Status 05/01/23 9:13 PM Chest 2 Views Frontal and Lat Deepthi Forrest; Auth (Verified) Notes: (Chest 2 Views Frontal and Lat) Reason For Exam: Angina RESULT: Chest 2 Views Frontal and Lat Chest 2 Views Frontal and Lat Hx of Present Illness: Pt c o intermittent bilat hand tingling and chest tightness x 2 weeks. Pt sts increased stress for the last few months ; Reason: Angina; Clinical Question(s): CHF COMPARISON: None. FINDINGS: LINES AND TUBES: None. LUNGS AND PLEURA: Clear lungs. Normal pulmonary vascularity. No pleural effusion. No pneumothorax. HEART, MEDIASTINUM AND MARY: Heart is normal in size. Normal mediastinal and hilar contour. BONES AND SOFT TISSUES: No acute abnormality. IMPRESSION: No acute abnormality. WSN: [id number] Ordering Physician: Pura Schmitz Dictated By: Manny Valero MD Dictated Date/Time: 05/01/23 9:44 pm Reviewed By: Manny Valero MD Signed By: Manny Valero MD Signed Date/Time: 05/01/23 9:44 pm Transcribed By: EVA Transcribed Date/Time: 05/01/23 9:44 pm Vital Signs Most recent to oldest [Reference Range]: 1 2 3 Height 163 cm (05/01/23 8:19 PM) 163 cm (05/01/23 7:22 PM) 163 cm (05/01/23 4:11 PM) Oxygen Saturation [94-100 %] 100 % (05/01/23 8:19 PM) 100 % (05/01/23 4:11 PM) 100 % (05/01/23 4:05 PM) Pulse Rate [55-90 bpm] 57 bpm (05/01/23 8:19 PM) 62 bpm (05/01/23 4:11 PM) 81 bpm (05/01/23 4:05 PM) Blood Pressure [90-138/55-84 mm Hg] 108/62mm Hg (05/01/23 8:19 PM) 119/68mm Hg (05/01/23 4:11 PM) Respiratory Rate [16-30 br/min] 14 br/min *L* (05/01/23 8:19 PM) 16 br/min (05/01/23 4:11 PM) Temperature [96.8-100.4 DegF] 98.4 DegF (05/01/23 8:19 PM) 98.9 DegF (05/01/23 4:11 PM) Mode of Delivery (Oxygen) Room air (05/01/23 8:19 PM) Room air (05/01/23 4:11 PM) Blood pressure sites Arm, left (05/01/23 8:19 PM) Arm, right (05/01/23 4:11 PM) Temperature Route Oral (05/01/23 8:19 PM) Oral (05/01/23 4:11 PM) Dry Weight 64.5 kg (05/01/23 8:19 PM) 64.5 kg (05/01/23 7:22 PM) 64.5 kg (05/01/23 4:11 PM) Dry Weight Obtained Via Patient/family s tated (05/01/23 4:11 PM) EKG study * Event Display: ECG 12-Lead Authored Date: Please click on pdf link to open report * Event Display: ECG 12-Lead Authored Date: Ventricular Rate: 56 BPM Atrial Rate: 56 BPM P-R Interval: 126 ms QRS Duration: 76 ms Q-T Interval: 388 ms QTC Calculation(Bazett): 374 ms P Franklin: 70 degrees R Franklin: 47 degrees T Franklin: 56 degrees Sinus bradycardia with sinus arrhythmia Otherwise normal ECG When compared with ECG of 24-NOV-2007 14:06, PREVIOUS ECG IS PRESENT Confirmed by WIN AGUIAR MD ([id number]) on 05/01/2023 5:42:17 PM [place]: WIN AGUIAR MD Note * Pura Schmitz MD: PERFORM Event Display: Patient Education Leaflets Authored Date: [id number] Heart Palpitations ?? [id number] Heart Palpitations Palpitations are the feeling that your heart is beating hard, fast, or irregular. Some describe it as pounding, flip-flopping in the chest, or skipped beats. Palpitations may occur in someone with heart disease. But they can also occur in a healthy person. Heart-related causes: ??? Heart rhythm problem (arrhythmia) ??? Heart valve disease ??? Disease of the heart muscle (cardiomyopathy) ??? Coronary artery disease ??? High blood pressure [id number] causes: ??? Certain medicines such as asthma inhalers and decongestants ??? Some herbal supplements, energydrinks and pills, and weight loss pills ??? Illegal stimulant drugs such as cocaine, crank, methamphetamine, PCP, and ecstasy ??? Caffeine, alcohol, and tobacco ??? Health conditions such as thyroid disease, anemia, anxiety, and panic disorder Sometimes the cause can't be found. Home care Follow these home care tips: ??? Don't use too much caffeine, alcohol, or tobacco, or any stimulantdrugs. ??? Tell your doctor about any prescription or rfsj-hev-hvsfxas or herbal medicines you take. ?? Follow-up care ??? Follow up with your doctor, or as advised. ?? Call 911 This is the fastest and safest way to get to the emergency department. The paramedics can also start treatment on the way to the hospital, if needed. Don't wait until your symptoms are severe to call 911. These are reasons to call 911: ??? Chest pain ??? Shortness of breath ??? Feeling lightheaded, faint, or dizzy, or losing consciousness ??? Veryirregular heartbeat ??? Rapid heartbeat that makes you uncomfortable ??? Slower than usual heart rate along with symptoms ??? Chest pain with weakness, dizziness,??heavy sweating, nausea, or vomiting??? Extreme drowsiness, confusion, or weakness ??? Weakness of an arm or leg, or on one side of theface ??? Trouble with speech or vision ?? When to seek medical advice Call your healthcare provider right away if you have palpitations that last longer than normal, or are different from your past palpitations. ?? Last Reviewed Date: 2021 ?? [employer]. All rights reserved. This information is not intended as a substitute for professional medical care. Always follow your healthcare professional's instructions. ?? * Pura Schmitz MD: PERFORM Event Display: Patient Education Leaflets Authored Date: [id number] Panic Attack ?? [id number] Panic Attack A panic attack is an extreme fear reaction that happens for no clear reason. You may have a fear that something terrible will happen or that you may . The attack may last a few minutes up to a fewhours. Between attacks, things will seem quite normal. This condition is a mental health disorder that can be treated with the help of a therapist or psychiatrist. If panic attacks happen often, you may have a panic disorder. Medicine and psychotherapy can be very helpful for a panic disorder. Panic attacks usually come on suddenly, reach a peak within minutes, and include at least 4 of these symptoms: ??? Fluttering feeling in the heart (palpitations), pounding heart, or fast heart rate ??? Sweating??? Chills or feeling warm ??? Trembling or shaking ??? Sensations of shortness of breath or smothering ??? Feelings of choking ??? Chest pain or discomfort ??? Nausea or stomachache ??? Feeling dizzy, unsteady, lightheaded, or faint ??? Numbness or tingling sensations ??? Fear of dying ??? Fear ofgoing crazy or of losing control ??? Feelings of unreality, strangeness, or detachment from the environment Many of these symptoms can be linked to??physical problems. Sometimes a healthcare provider will need to rule out conditions such as thyroid disorders, heart disease, or digestive problems. These conditions can also start as physical symptoms. But you may react to the symptoms in a fearful way. That can make you feel worse. Home care ??? Try to find the sources of stress in your life.??They may not be obvious. These may include: o Daily hassles of life piling up (traffic jams, missed appointments, or car troubles). o Major life changes, both good (new baby, job promotion) and bad (loss of job, loss of loved one). o Feeling that you have too many responsibilities and can't take care of everything at once. o Helplessness. This is feeling like your problems are too much for you to handle. ??? Notice how your body reacts to stress. Learn to listen to your body signals so that you can take action before the stress becomes severe. ??? Try to be aware of what you were doing before the reaction started. This may give you clues to things that can trigger a reaction. It may be situations in your life, or what you weredoing at the time. ??? When possible,??prevent or reduce your stress. Avoid hassles and limit the amount of change that is happening in your life at one time. Or take a break when you feel overloaded. ??? Unfortunately, you can't stay away from all stressful situations. So you need to??learn how to manage stress better. Many proven methods??will reduce your anxiety. These include simple things like exercise, good nutrition, and adequate rest. Certain techniques also are helpful: relaxation and breathing exercises, visualization, biofeedback, meditation, or simply taking??time out to clear your mind. For more information about this, ask your healthcare provider. ?? Follow-up care Follow-up with your healthcare provider as advised. If you keep having panic attacks or change yourbehaviors to avoid situations that may cause an attack, you may have a panic disorder. Treatment usually helps control the symptoms of a panic disorder. Psychotherapy (cognitive -behavior therapy, exposure therapy) and medicines (anti-depressants or benzodiazepines) are the primary ways it is treated. A panic disorder is a chronic (long-term) condition. Without treatment, the symptoms will continue to be disabling. ?? Call or text 988 Call 988 if you: ??? Have suicidal thoughts, a suicide plan, and the means to carry out the plan ??? Have serious thoughts of hurting someone else ??? Have trouble breathing ??? Are very confused ??? Feel very drowsyor have trouble awakening ??? Faint or lose consciousness ??? Have new chest pain that becomes moresevere, lasts longer, or spreads into your shoulder, arm, neck, jaw, or back ??? Have a very rapid or irregular heartbeat ??? Have a seizure When you call or text 988, you will be connected to trained crisis counselors. An online chat option is also available. [employer] is free and available 04/02. The 988 counselors will work closely with [facility] to get you the care you need. ?? When to seek medical advice Call your healthcare provider right away if any of these occur: ??? Panic attacks happen often and are no longer isolated events ??? Symptoms get worse to the point of feeling [id number] ??? Feeling that you may try to harm yourself or another (call or text 988) ??? Can't sleep or eat for 3 days in a row ??? Increased pain with breathing ??? Increasing feeling of weakness or dizziness ??? Cough with dark-colored sputum (phlegm) or blood ??? Fever of 100.4??F (38??C) or higher, or as advisedby??your healthcare provider ??? Swelling, pain, or redness in one leg ??? Requests by family or friends for you to seek help for your symptoms ?? Last Reviewed Date: 2023 ?? [id number] [employer]. All rights reserved. This information is not intended as a substitute for professional medical care. Always follow your healthcare professional's instructions. ?? Patient Care team information Care Team Personnel Name: Karolyn Stovall NP Position: Reference Physician Member Role: PCP Address: Address: [address] [place] [id number]- Name: Vance Yang RN Position: [facility] ED RN W/OE and Tasks Name: Kristine Parnell MD Position: [facility] ED Medicine MD Member Role: Admitting Physician Address: Address: [address] [place] [id number]- Name: Ирина Rust RN Position: [facility] ED RN W/OE and Tasks Member Role: Patient Care Provider Name: Pura Schmitz MD Position: [facility] Resident Member Role: ED Resident Address: Address: [address] [place] [id number]- Name: Janet Hannon Position: [facility] ED TA [facility] Member Role: Patient Care Provider Care Team Related Persons Name: GREGG COOMBS Address: home [address] [place] [id number]
[2023-05-04 04:27] LABS: Glucose, Whole Blood 107 mg/dL (60-115)
[2023-05-04 04:31] LABS: Anion Gap 14 (12-20); Blood Urea Nitrogen 13 mg/dL (9-16); Calcium 9.9 mg/dL (8.4-10.2); Carbon Dioxide 23 mmol/L (22-29); Chloride 103 mmol/L (96-108); Creatinine Clr Calc Pharmacy 100.3; Estimated Glomerular Filt Rate > 60; Glucose Random 114 mg/dL (60-115); Potassium 4.1 mmol/L (3.3-5.1); Sodium 136 mmol/L (135-145)
[2023-05-04 04:39] LABS: Troponin-I High Sensitivity < 2.7 ng/L (<3.5-17.0)
[2023-05-04 04:56] VITALS: BP 101/65; PULSE 63; RESP 10; TEMP 36.4; O2SAT 100
--- NOTE | 2023-05-04 07:12 | PC.NURSE ---
Resumed care of patient this morning she is currently sleeping in bed. Pt remains NSR on monitor. Awaiting dispo at this time
--- NOTE | 2023-05-04 07:33 | ED_ITS ---
HPI - Chest Pain General Chief Complaint: Chest Pain Stated Complaint: Chest pressure Time Seen by Provider: 05/04/23 07:10 Source: patient Mode of arrival: ambulatory Limitations: no limitations History of Present Illness HPI narrative: Patient with increased anxiety having panic attacks and chest last 1 month came here for same no shortness of breath no palpitation pain is on the left side mostly no shortness of breath no radiation of the pain pain occurs almost every day Related Data Previous Rx's Medication Instructions Recorded ondansetron 4 mg disintegrating 4 mg PO Q8H PRN nausea and 03/20/21 tablet vomiting #20 tabs hydroxyzine HCl 25 mg tablet 25 mg PO TID PRN anxiety #7 tabs 05/01/23 ibuprofen 600 mg tablet 600 mg PO Q6H PRN fever or pain 05/04/23 #30 tabs Allergies Allergy/AdvReac Type Severity Reaction Status Date / Time No Known Allergies Allergy Verified 04/17/23 22:30 [No Known Allergies*] Review of Systems 2 Review of Systems: Yes all other systems are reviewed and are negative PMFSH Past Medical History Medical History No active medical problems Surgical History H/O: Social History Social History Patient Tobacco Use Status: Never used Tobacco Advance Directives: No Advance Directives Information Provided: Yes Physical Exam 2 Vital Signs: Vital Signs: Last Vital Signs Temp 97.5 F 05/04/23 04:56 Pulse 63 05/04/23 04:56 Resp 10 L 05/04/23 04:56 BP 101/65 05/04/23 04:56 Pulse Ox 100 05/04/23 04:56 O2 Del Method Room Air 05/04/23 04:56 BMI result Body Mass Index 24.2 Appearance: Alert. Oriented X3. No acute distress. ENT: Pharynx normal. Oral Mucosa moist Neck: Normal inspection. Neck supple. CVS: Normal heart rate and rhythm. Pulses normal. Respiratory: No respiratory distress. Equal air entry bilateral, no wheezing/rales/rhonchi Abdomen: Soft and nontender. Bowel sounds are present, Skin: Skin warm and dry. Normal skin color. Normal skin turgor. Extremities: No lower extremity edema. No calf tenderness Neuro: Oriented X 3. Medications Administered Discontinued Medications Generic Name Dose Route Start Last Admin Trade Name Derrick PRN Reason Stop Dose Admin Ibuprofen 600 mg 05/04/23 07:36 05/04/23 07:51 Ibuprofen 600 Mg Tablet PO 05/04/23 07:37 600 mg ONCE ONE Administration Medical Decision Making Medical Decision Making [facility] Narrative: Patient with anxiety with atypical chest pain labs are stable , heart score of 0 will discharge the patient home Differential Diagnosis Differential Diagnoses: The differential diagnosis associated with the presentation includes Atypical chest pain/anxiety/ACS/pericarditis Lab Data [facility] Lab Attestation statement: I reviewed the patient's lab results. 05/04/23 04:11 05/04/23 04:11 Labs: Lab Results 05/04/23 05/04/23 Range/Units 04:06 04:11 WBC 10.5 (4.8-10.8) X10*3/uL RBC 4.52 (4.20-5.50) X10*6/uL Hgb 13.8 (12.0-16.0) g/dl Hct 39.9 (37.0-47.0) % MCV 88.3 (80.0-98.0) fL MCH 30.5 (27.0-33.0) pg MCHC 34.6 (31.0-35.0) g/dl RDW 11.8 (11.0-16.0) % Plt Count 253 (160-400) X10*3/uL MPV 10.4 (9.4-12.3) fL Immature Gran % (Auto) 0.2 (0.0-0.4) % Neut % (Auto) 46.7 (45-73) % Lymph % (Auto) 42.5 H (20-40) % [place] % (Auto) 9.2 (2-11) % Eos % (Auto) 1.0 (0-4) % Baso % (Auto) 0.4 (0-2) % Lymph # (Auto) 4.5 (1.2-4.9) X10*3/uL [place] # (Auto) 1.0 (0.1-1.2) X10*3/uL Eos # (Auto) 0.1 (0.0-0.4) X10*3/uL Baso # (Auto) 0.0 (0.0-0.2) X10*3/uL Abs Immat Gran (auto) 0.02 (0.00-0.03) X10*3/uL Absolute Neuts (auto) 4.9 (2.0-8.3) x10*3/uL Absolute Nucleated RBC 0.000 (0.0-0.012) X10*3/uL Nucleated RBC % (auto) 0.0 (0.0-0.2) /100WBC Sodium 136 (135-145) mmol/L Potassium 4.1 (3.3-5.1) mmol/L Chloride 103 (96-108) mmol/L Carbon Dioxide 23 (22-29) mmol/L Anion Gap 14 (12-20) BUN 13 (9-16) mg/dL Creatinine 0.74 (0.5-1.4) mg/dL Estim Creat Clear Calc 100.3 Estimated GFR > 60 POC Glucose 107 (60-115) mg/dL Random Glucose 114 (60-115) mg/dL Calcium 9.9 D (8.4-10.2) mg/dL Troponin I High Sens < 2.7 (<3.5-17.0) ng/L Discharge Plan Discharge Clinical Impression: Atypical chest pain Patient Disposition: Home, Self-Care Instructions: Noncardiac Chest Pain (ED) Additional Instructions: Your chest pain is likely musculoskeletal Take ibuprofen for pain and follow with PCP Prescriptions: New ibuprofen 600 mg tablet 600 mg PO Q6H PRN (Reason: fever or pain) Qty: 30 0RF No Action ondansetron 4 mg tablet,disintegrating 4 mg PO Q8H PRN (Reason: nausea and vomiting) Qty: 20 0RF hydroxyzine HCl 25 mg tablet 25 mg PO TID PRN (Reason: anxiety) Qty: 7 0RF Interventions: ED Discharge Assessment Last Done: 05/04/23 07:53 Discharge Date/Time: 05/04/23 07:54
[2023-05-04] MEDS: Ibuprofen 600 MG TABLET PO (07:51)
== END 2023-05-04 07:54 | disposition home or self-care (01) ==
PROVIDERS: Emergency Provider Internal Medicine
DX: R07.89 Other chest pain (principal); F41.9 Anxiety disorder, unspecified
CPT/HCPCS: 36415; 80048; 82947; 84484; 85025; 93005; 99283; 99285

== ENCOUNTER 2023-07-27 11:07 | Emergency (ER) | payer OTHER, SELFPAY ==
--- NOTE | ~2023-07-27 | XR_ITS ---
EXAMINATION: XR CHEST CLINICAL INFORMATION: Chest tightness COMPARISON: Chest radiograph from 01/28/2018 TECHNIQUE: 2 views of the chest were obtained. FINDINGS: No focal consolidation. No pneumothorax. Trachea is midline. Cardiac mediastinal silhouette is not enlarged. No large pleural effusion. Osseous structures are intact. Soft tissues are unremarkable. Bilateral nipple piercings. XR/XR chest 2V IMPRESSION: No acute cardiopulmonary process.
[2023-07-27 11:44] VITALS: BP 145/58; PULSE 63; RESP 18; TEMP 36.8; O2SAT 97; BMI 23.3
--- NOTE | 2023-07-27 11:44 | ED_ITS ---
HPI - General Adult General Chief complaint: Neuro Symptoms/Deficit Stated complaint: medication allergic reaction? Time Seen by Provider: 07/27/23 12:16 Source: patient Mode of arrival: ambulatory Limitations: no limitations History of Present Illness HPI narrative: 28-year-old female with a history of anxiety presents to the ER with complaints of perioral numbness and tingling as well as cramping in her hands and feet. Patient states that on Saturday she started taking sertraline 25 mg. She took her 1st dose at night time and then transition to taking in the morning. Patient reports after she started taking the morning she started to notice this sensation of perioral numbness approximately 30 minutes after taking the medication which seemed to improve throughout the day. She is only taking the medication once daily. She has still been taking it and took a dose at 10:00 this morning. After taking the dose she developed this same perioral numbness and tingling as well as cramping in her hands and feet. She has not spoken to her prescriber. This is being prescribed by her primary care doctor. She has had progressive anxiety over the last few years and this is her 1st time taking an anxiety medication. She does not have a therapist or psychiatrist. She reports triggers of her anxiety being finance related. 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 Today she also had some chest tightness and SOB. no associated vomiting, diaphoresis, leg swelling or leg pain. No OCP use. No recent travel or sick contact. Related Data Previous Rx's Medication Instructions Recorded ondansetron 4 mg disintegrating 4 mg PO Q8H PRN nausea and 03/20/21 tablet vomiting #20 tabs hydroxyzine HCl 25 mg tablet 25 mg PO TID PRN anxiety #7 tabs 05/01/23 ibuprofen 600 mg tablet 600 mg PO Q6H PRN fever or pain 05/04/23 #30 tabs Allergies Allergy/AdvReac Type Severity Reaction Status Date / Time No Known Allergies Allergy Verified 07/27/23 11:44 [No Known Allergies*] Review of Systems 2 Review of Systems: Yes all other systems are reviewed and are negative Constitutional: Constitutional: Reports no additional constitutional complaints, Denies body ache(s), Denies chills, Denies fever(s), Denies headache(s) and Denies weakness Eyes: Eyes: Reports no additional eye complaints and Denies change in vision ENT: Reports system reviewed and no additional complaints, except as documented, Denies dizziness, Denies headache(s), Denies nasal congestion, Denies nasal discharge and Denies neck pain Cardiovascular: Cardiovascular: Reports no additional cardiovascular complaints, Reports chest pain, Denies leg edema and Reports dyspnea Respiratory: Respiratory: Reports no additional respiratory complaints, Denies cough and Reports dyspnea Gastrointestinal: Gastrointestinal: Reports no additional gastrointestinal complaints, Denies abdominal pain, Denies diarrhea, Denies nausea and Denies vomiting Genitourinary: Genitourinary: Reports no additional female genitourinary complaints and Denies urinary incontinence Musculoskeletal: Musculoskeletal: Reports no additional musculoskeletal complaints, Denies back pain, Denies arthralgias, Denies joint swelling, Denies neck pain, Reports numbness and Denies tingling Integumentary/Breasts: Skin/Breast: Reports system reviewed and no additional complaints, except as docu and Denies rash Neurologic: Reports system reviewed and no additional complaints, except as documented, Denies Abnormal speech present, Denies dizziness, Denies headache(s), Reports numbness, Denies tingling and Denies weakness PMFSH Past Medical History Attestation statement: The following information was validated with the patient. Source: old records reviewed and nursing notes reviewed Onset Date is defined in the Problem List Problems that require an onset date and time if occurred within 24 hrs of arrival to the ED Aortic Dissection and Rupture; Neurologic impairment; Cardiopulmonary Arrest; Endotracheal Intubation; Insertion or Replacement of Mechanical Circulatory Assist Device Medical History No active medical problems Surgical History H/O: Social History Social History Patient Tobacco Use Status: Never used Tobacco Advance Directives: No Advance Directives Information Provided: No Physical Exam ED Vital Signs: Vital Signs - 24 hr 07/27/23 11:44 07/27/23 14:09 Temperature 98.3 F 98.0 F Pulse Rate 63 65 Respiratory Rate 18 15 Blood Pressure 145/58 H 103/55 L Pulse Oximetry 97 97 Oxygen Delivery Method Room Air Room Air BMI result Body Mass Index 23.3 Const General: cooperative, healthy appearing, comfortable and no acute distress Orientation/consciousness: patient oriented x3 Limitations: no limitations HENMT Head: Yes normal to inspection Ears: hearing grossly normal bilaterally and TM's normal bilaterally General nose exam: Normal external nose present Face and sinus: Yes normal facial exam Mouth: Normal oral and palatal mucosa present Throat: Yes posterior oropharynx normal, Yes tonsils normal and Yes uvula midline Eyes General: appearance normal, both eyes and all related structures Pupils: Equal, round and reactive pupils present Neck Neck: Yes normal visual inspection, Yes full ROM, Yes no lymphadenopathy and Yes no meningeal signs Chest Chest palpation & inspection: normal inspection of the chest Resp Effort & Inspection: normal respiratory effort Auscultation: clear to auscultation bilaterally Cardio Rate: regular rate Rhythm: regular rhythm Peripheral pulses: Peripheral pulses 2+ throughout GI Inspection: Yes normal to inspection Palpation (GI): Soft to palpation and nontender Auscultation: normal bowel sounds Back/Spine/Pelvis Thoracic/Lumbar Spine: thoracic and lumbar spine normal to inspection Skin General skin exam: no rashes or lesions noted Neuro General: patient oriented x3, moves all extremities, no meningeal signs, no focal motor deficits and normal sensation to monofilament Cranial nerves: Yes CN's II-XII intact bilaterally, Yes Equal, round and reactive pupils present, Yes Bilaterally intact EOM present, Yes Nystagmus not present, Yes Normal facial strength present and Yes Midline tongue present Cognition (Neuro): normal cognition Speech: No Abnormal speech present Gait exam (Neuro): Normal gait present Motor exam (neuro): 5/5 motor strength present throughout Sensory Exam: Normal double simultaneous stimulation for sensation Coordination: [id number] test normal, [id number] test normal and tandem gait normal Extrem General: Yes normal to inspection Course Course Course Narrative: This is an RME: Additional HPI, ROS, PE not included below will be deferred to primary provider. This is a 28 year old female, with a hx of anxiety, presenting to the ER with complaints of BL facial numbness 2 days ago. Started on left side initially then progressed into right side of her jaw. She is neurologically intact. She states that she just started sertraline on Saturday, states that she took half a tablet in progressed up to 1 tablet per her prescriber. She has not reached out to her prescriber. She is also reporting some chest tightness. She has not on control. Lungs clear to auscultation bilaterally Plan: Labs, EKG, chest x-ray Reevaluation(s) Reevaluation #1: Patient feels improved. ?anxiety. recommend she discuss her sertraline with her primary care doctor. Reviewed worrisome signs and symptoms of when to return to the emergency room. Comfortable plan for discharge home. Medications Administered Discontinued Medications Generic Name Dose Route Start Last Admin Trade Name Derrick PRN Reason Stop Dose Admin Lorazepam 0.5 mg 07/27/23 12:36 07/27/23 12:51 Lorazepam 0.5 Mg Tablet PO 07/27/23 12:37 0.5 mg ONCE ONE Administration Medical Decision Making Medical Decision Making [facility] Narrative: 28-year-old female with a history of anxiety presents to the ER with complaints of perioral numbness and tingling as well as cramping in her hands and feet. Patient states that on Saturday she started taking sertraline 25 mg. She took her 1st dose at night time and then transition to taking in the morning. Patient reports after she started taking the morning she started to notice this sensation of perioral numbness approximately 30 minutes after taking the medication which seemed to improve throughout the day. She is only taking the medication once daily. She has still been taking it and took a dose at 10:00 this morning. After taking the dose she developed this same perioral numbness and tingling as well as cramping in her hands and feet. She has not spoken to her prescriber. This is being prescribed by her primary care doctor. She has had progressive anxiety over the last few years and this is her 1st time taking an anxiety medication. She does not have a therapist or psychiatrist. She reports triggers of her anxiety being finance related. 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 Today she also had some chest tightness and SOB. no associated vomiting, diaphoresis, leg swelling or leg pain. No OCP use. No recent travel or sick contact. Normal neuro exam with no focal deficits. Will obtain labs, EKG, CXR Offered oral ativan and patient accepted Differential Diagnosis Differential Diagnoses: The differential diagnosis associated with the presentation includes low suspicion for ICH, CVA, SAH, PE, ACS, anemia Consider anxiety, electrolyte abnormality Admission/Observation Consideration of admission/observation: Escalation of care including admission/observation considered no neurological deficits to suggest need for head imaging, neuro consultation and or admission Lab Data MDM Lab Attestation statement: I reviewed the patient's lab results. 07/27/23 12:49 07/27/23 12:49 Labs: Lab Results 07/27/23 Range/Units 12:49 WBC 8.8 (4.8-10.8) X10*3/uL RBC 4.41 (4.20-5.50) X10*6/uL Hgb 13.3 (12.0-16.0) g/dl Hct 38.3 (37.0-47.0) % MCV 86.8 (80.0-98.0) fL MCH 30.2 (27.0-33.0) pg MCHC 34.7 (31.0-35.0) g/dl RDW 12.0 (11.0-16.0) % Plt Count 280 (160-400) X10*3/uL MPV 10.3 (9.4-12.3) fL Immature Gran % (Auto) 0.2 (0.0-0.4) % Neut % (Auto) 59.3 (45-73) % Lymph % (Auto) 31.7 (20-40) % [place] % (Auto) 7.7 (2-11) % Eos % (Auto) 0.6 (0-4) % Baso % (Auto) 0.5 (0-2) % Lymph # (Auto) 2.8 (1.2-4.9) X10*3/uL [place] # (Auto) 0.7 (0.1-1.2) X10*3/uL Eos # (Auto) 0.1 (0.0-0.4) X10*3/uL Baso # (Auto) 0.0 (0.0-0.2) X10*3/uL Abs Immat Gran (auto) 0.02 (0.00-0.03) X10*3/uL Absolute Neuts (auto) 5.2 (2.0-8.3) x10*3/uL Absolute Nucleated RBC 0.000 (0.0-0.012) X10*3/uL Nucleated RBC % (auto) 0.0 (0.0-0.2) /100WBC Sodium 137 (135-145) mmol/L Potassium 3.8 (3.3-5.1) mmol/L Chloride 105 (96-108) mmol/L Carbon Dioxide 23 (22-29) mmol/L Anion Gap 13 (12-20) BUN 13 (9-16) mg/dL Creatinine 0.78 (0.5-1.4) mg/dL Estim Creat Clear Calc 94.4 Estimated GFR > 60 Random Glucose 96 (60-115) mg/dL Calcium 9.5 (8.4-10.2) mg/dL Magnesium 1.8 (1.6-2.6) mg/dL Total Bilirubin 1.6 H (0.0-1.0) mg/dL Direct Bilirubin 0.5 (0.0-0.5) mg/dL AST 12 (5-31) U/L ALT 13 (0-31) U/L Alkaline Phosphatase 58 (39-117) U/L Troponin I High Sens < 2.7 (<3.5-17.0) ng/L Total Protein 7.5 (6.5-8.0) g/dL Albumin 4.3 (3.5-5.0) g/dL Independent Interpretation I performed an independent interpretation of an: EKG and Plain X-Ray Interpretation: I independently reviewed the x-ray and agree with the radiology report I independently reviewed the EKG which shows sinus rhythm with sinus arrhythmia with rate of 61, normal HI, normal QRS, normal QT Radiology Impression Discussion of test interpretation with radiology: I have reviewed the radiologist's reading. Radiologist Impression: [place] [id number] XRay Report Signed Patient: Janey Foley MR#: [id number] : 1995 Acct:[id number] Age/Sex: 28 / F ADM Date: 07/27/23 Loc: .ED Attending Dr: Ordering Physician: Christie Paulino Date of Service: 07/27/23 Procedure(s): XR chest 2V Accession Number(s): [id number] cc: Christie Paulino; Physician,None ~ EXAMINATION: XR CHEST CLINICAL INFORMATION: Chest tightness COMPARISON: Chest radiograph from 01/28/2018 TECHNIQUE: 2 views of the chest were obtained. FINDINGS: No focal consolidation. No pneumothorax. Trachea is midline. Cardiac mediastinal silhouette is not enlarged. No large pleural effusion. Osseous structures are intact. Soft tissues are unremarkable. Bilateral nipple piercings. XR/XR chest 2V IMPRESSION: No acute cardiopulmonary process. Discharge Plan Discharge Clinical Impression: Paresthesia Patient Disposition: Home, Self-Care Instructions: Paresthesia (ED) Additional Instructions: your blood work, chest x-ray and EKG are reassuring I am not sure that this is related to the sertraline however you can hold her dose tomorrow and Saturday and speak to her primary care doctor about this further. return for any worsening symptoms Prescriptions: No Action ondansetron 4 mg tablet,disintegrating 4 mg PO Q8H PRN (Reason: nausea and vomiting) Qty: 20 0RF ibuprofen 600 mg tablet 600 mg PO Q6H PRN (Reason: fever or pain) Qty: 30 0RF hydroxyzine HCl 25 mg tablet 25 mg PO TID PRN (Reason: anxiety) Qty: 7 0RF Referrals: Physician,None [Primary Care Provider] - 1 week Interventions: ED Discharge Assessment Last Done: 07/27/23 14:10 Discharge Date/Time: 07/27/23 14:11
--- NOTE | 2023-07-27 11:50 | ECG_ITS ---
Test Reason : CHEST TIGHTNESS Blood Pressure : / mmHG Vent. Rate : 061 BPM Atrial Rate : 061 BPM P-R Int : 108 ms QRS Dur : 080 ms QT Int : 408 ms P-R-T Axes : 057 043 044 degrees QTc Int : 410 ms Sinus rhythm with sinus arrhythmia with short IN Otherwise normal ECG When compared with ECG of 04-MAY-2023 03:48, No significant change was found Referred By: Christie Paulino Electronically Signed By:SANGEETA CHIN MD
[2023-07-27] MEDS: LORazepam 0.5 MG TABLET PO (12:51)
[2023-07-27 12:53] LABS: MANUAL DIFF FLAG NO
[2023-07-27 12:54] LABS: Basophils Percent Auto 0.5 % (0-2); Eosinophils Absolute Auto 0.1 X10*3/uL (0.0-0.4); Eosinophils Percent Auto 0.6 % (0-4); Hematocrit 38.3 % (37.0-47.0); Hemoglobin 13.3 g/dl (12.0-16.0); Imm Gran Abs Auto 0.02 X10*3/uL (0.00-0.03); Imm Gran Pct Auto 0.2 % (0.0-0.4); Lymphocytes Absolute Auto 2.8 X10*3/uL (1.2-4.9); Lymphocytes Percent Auto 31.7 % (20-40); Mean Corpuscular HGB Conc 34.7 g/dl (31.0-35.0); Mean Corpuscular Hemoglobin 30.2 pg (27.0-33.0); Mean Corpuscular Volume 86.8 fL (80.0-98.0); Mean Platelet Volume 10.3 fL (9.4-12.3); Monocytes Absolute Auto 0.7 X10*3/uL (0.1-1.2); Monocytes Percent Auto 7.7 % (2-11); Neutrophils Absolute Auto 5.2 x10*3/uL (2.0-8.3); Neutrophils Percent Auto 59.3 % (45-73); Platelet Count 280 X10*3/uL (160-400); Red Blood Count 4.41 X10*6/uL (4.20-5.50); White Blood Count 8.8 X10*3/uL (4.8-10.8)
[2023-07-27 13:10] LABS: Magnesium 1.8 mg/dL (1.6-2.6)
[2023-07-27 13:11] LABS: Alanine Aminotransferase 13 U/L (0-31); Albumin Level 4.3 g/dL (3.5-5.0); Alkaline Phosphatase 58 U/L (39-117); Anion Gap 13 (12-20); Aspartate Amino Transferase 12 U/L (5-31); Bilirubin Direct 0.5 mg/dL (0.0-0.5); Bilirubin Total 1.6 mg/dL (0.0-1.0); Blood Urea Nitrogen 13 mg/dL (9-16); Calcium 9.5 mg/dL (8.4-10.2); Carbon Dioxide 23 mmol/L (22-29); Chloride 105 mmol/L (96-108); Creatinine Clr Calc Pharmacy 94.4; Estimated Glomerular Filt Rate > 60; Glucose Random 96 mg/dL (60-115); Potassium 3.8 mmol/L (3.3-5.1); Sodium 137 mmol/L (135-145); Total Protein 7.5 g/dL (6.5-8.0)
[2023-07-27 13:27] LABS: Troponin-I High Sensitivity < 2.7 ng/L (<3.5-17.0)
[2023-07-27 14:09] VITALS: BP 103/55; PULSE 65; RESP 15; TEMP 36.7; O2SAT 97
== END 2023-07-27 14:11 | disposition home or self-care (01) ==
PROVIDERS: Nurse Practitioner Family; Physician Assistant Medical; Emergency Provider Emergency Medicine
DX: R20.2 Paresthesia of skin (principal); R06.02 Shortness of breath; F41.9 Anxiety disorder, unspecified
CPT/HCPCS: 36415; 71046; 80048; 80076; 83735; 84484; 85025; 93005; 99283; 99284

== ENCOUNTER → 2023-07-27 11:50 | Outpatient (BNV) | payer SELFPAY | PROVIDERS: Emergency Provider Emergency Medicine; Visit Provider Internal Medicine Cardiovascular Disease | DX: I49.9 Cardiac arrhythmia, unspecified (principal) | CPT/HCPCS: 93010 ==